=== PATIENT | male | born 1985 | race Caucasian/White ===

== ENCOUNTER → 2017-12-05 | Outpatient (CLI) | payer OTHER ==
[~2017-12-05] MED LIST: GADOBUTROL 10 ML VIAL IVP ONE
== END ==
LOC: FIMAGING 15:15
PROVIDERS: ATTEND Psychiatry & Neurology Psychiatry
DX: F20.9 Schizophrenia, unspecified (principal); Z87.820 Personal history of traumatic brain injury
CPT/HCPCS: A9585

== ENCOUNTER → 2018-01-20 | Outpatient (CLI) | payer OTHER ==
[~2018-01-20] MED LIST changes: +IOPAMIDOL (ISOVUE-300) 100 ML BTL ONE
== END ==
LOC: FIMAGING 08:06
PROVIDERS: ATTEND Psychiatry & Neurology Psychiatry
DX: G96.19 Other disorders of meninges, not elsewhere classified (principal); K59.00 Constipation, unspecified
CPT/HCPCS: A9585; Q9967

== ENCOUNTER → 2018-08-15 | Outpatient (CLI) | payer OTHER ==
--- NOTE | 2018-08-19 12:52 | CPEEG ---
DATE OF STUDY: INTERPRETATION: This EEG contains a mild degree of diffuse nonspecific slowing. These findings could be consistent with a mild diffuse disturbance of cerebral function or, sometimes, related to medication effect. There were no potentially epileptogenic abnormalities present during the awake or sleep recordings. REPORT: This EEG contains 10 Hz alpha activity to the posterior head regions. There was a mild degree of diffuse theta slowing present in the background activity. There was no abnormal epileptiform activation at rest or during photic stimulation or hyperventilation. The patient became drowsy and fell asleep during the study. There was no abnormal activation during drowsiness, sleep, or during times of arousal. /[id number]/MODL MTDD
== END ==
LOC: FCPNEURO 13:41
PROVIDERS: ATTEND Psychiatry & Neurology Neurology
DX: H53.9 Unspecified visual disturbance (principal)